=== PATIENT | female | born 1990 | race Caucasian/White ===

== ENCOUNTER → 2021-04-08 | Outpatient (CLI) | payer OTHER ==
[2021-04-08 15:05] LABS: HEMATOCRIT 43.5 % (36.0-47.0); HEMOGLOBIN 14.8 g/dl (12.0-15.5); PLATELET COUNT, AUTOMATED 331 10^3/uL (150-450); RED BLOOD COUNT 4.78 10^6/uL (4.00-5.40); WHITE BLOOD COUNT 8.4 10^3/uL (4.0-10.0)
[2021-04-08 16:17] LABS: HEPATITIS C VIRUS ABY INDEX < 0.0 INDEX (<0.8); HIV 1&2 SCREEN CENTAUR NEGATIVE (NEGATIVE)
[2021-04-08 17:02] LABS: GC DNA AMPLIFICATION NEGATIVE (NEGATIVE)
== END ==
LOC: M PLALAB 11:24
PROVIDERS: ATTEND Specialist
DX: Z34.81 Encounter for supervision of other normal pregnancy, first trimester (principal); Z3A.00 Weeks of gestation of pregnancy not specified

== ENCOUNTER → 2021-05-07 | Outpatient (CLI) | payer OTHER | LOC: M PLALAB 11:51 | PROVIDERS: ATTEND Obstetrics & Gynecology | DX: Z34.81 Encounter for supervision of other normal pregnancy, first trimester (principal); Z3A.00 Weeks of gestation of pregnancy not specified; Z53.9 Procedure and treatment not carried out, unspecified reason ==

== ENCOUNTER → 2021-07-12 | Outpatient (CLI) | payer OTHER | LOC: M WHC 15:23 | PROVIDERS: ATTEND Specialist | DX: Z34.82 Encounter for supervision of other normal pregnancy, second trimester (principal); Z3A.20 20 weeks gestation of pregnancy ==

== ENCOUNTER → 2021-08-22 | Outpatient (CLI) | payer OTHER ==
[2021-08-22 13:50] LABS: HEMATOCRIT 40.6 % (36.0-47.0); MEAN CORPUSCULAR HEMOGLOBIN 31.3 pg (27.0-33.0); MEAN CORPUSCULAR HGB CONC 34.5 g/dl (32.0-36.5); MEAN CORPUSCULAR VOLUME 90.6 fl (80.0-96.0); PLATELET COUNT, AUTOMATED 293 10^3/uL (150-450); RED BLOOD COUNT 4.48 10^6/uL (4.00-5.40); WHITE BLOOD COUNT 8.2 10^3/uL (4.0-10.0)
[2021-08-22 15:11] LABS: GC DNA AMPLIFICATION NEGATIVE (NEGATIVE)
== END ==
LOC: M PLALAB 10:38
PROVIDERS: ATTEND Specialist
DX: Z34.82 Encounter for supervision of other normal pregnancy, second trimester (principal); Z3A.00 Weeks of gestation of pregnancy not specified

== ENCOUNTER → 2021-08-29 | Outpatient (CLI) | payer OTHER | LOC: M LAB 07:04 | PROVIDERS: ATTEND Obstetrics & Gynecology | DX: R73.09 Other abnormal glucose (principal) ==

== ENCOUNTER 2021-10-26 07:35 | Outpatient (CLI) | payer OTHER ==
[~2021-10-26] VITALS: Ht 168.9 cm; Wt 63.5 kg
[2021-10-26 07:57] VITALS: BP 113/82
[2021-10-26] MEDS ORDERED: PRENTAB9 PO (08:06)
[2021-10-26] MEDS ORDERED: ACET650S3 PR (08:06)
[2021-10-26] MEDS ORDERED: ZOLO50TA PO (08:06)
[2021-10-26] MEDS ORDERED: HOME MED LIST COMPLETE! XX SCH (08:10)
[2021-10-26] MEDS ORDERED: BETAMETHASONE SOLUSPAN 6MG/ML 5ML VIAL (J0702 PER 3MG) IM ONE (09:00)
== END 2021-10-26 11:33 | disposition home or self-care (01) ==
LOC: M LDO 07:35
PROVIDERS: ATTEND Specialist
DX: O60.03 Preterm labor without delivery, third trimester (principal); O26.853 Spotting complicating pregnancy, third trimester; Z3A.35 35 weeks gestation of pregnancy
CPT/HCPCS: 59025; 96372; G0463; J0702

== ENCOUNTER 2021-10-27 09:23 | Outpatient (CLI) | payer OTHER ==
[~2021-10-27] VITALS: Ht 168.9 cm; Wt 64.4 kg
[~2021-10-27 09:23] MED LIST: ACET650S3 PR; PRENTAB9 PO; ZOLO50TA PO
[2021-10-27 09:34] VITALS: BP 129/78
[2021-10-27] MEDS ORDERED: HOME MED LIST COMPLETE! XX SCH (09:50)
[2021-10-27] MEDS ORDERED: BETAMETHASONE SOLUSPAN 6MG/ML 5ML VIAL (J0702 PER 3MG) IM ONE (10:30)
== END 2021-10-27 10:22 | disposition home or self-care (01) ==
LOC: M LDO 09:23
PROVIDERS: ATTEND Specialist
DX: O60.03 Preterm labor without delivery, third trimester (principal); Z3A.35 35 weeks gestation of pregnancy
CPT/HCPCS: 96372; G0378; J0702

== ENCOUNTER → 2021-10-30 | Outpatient (REF) | payer OTHER | LOC: M PLALAB 11:33 | PROVIDERS: ATTEND Specialist | DX: Z36.85 Encounter for antenatal screening for Streptococcus B (principal) ==

== ENCOUNTER 2021-11-05 12:18 | Outpatient (CLI) | payer OTHER ==
[~2021-11-05] VITALS: Ht 47 cm; Wt 61.9 kg
[2021-11-05 12:34] VITALS: BP 145/92
[2021-11-05] MEDS ORDERED: HOME MED LIST COMPLETE! XX SCH (12:40)
[2021-11-05 12:53] VITALS: BP 127/84
[2021-11-05 13:08] VITALS: BP 122/75
[2021-11-05 14:43] LABS: HEMATOCRIT 37.9 % (36.0-47.0); HEMOGLOBIN 12.9 g/dl (12.0-15.5); MEAN CORPUSCULAR HEMOGLOBIN 30.3 pg (27.0-33.0); PLATELET COUNT, AUTOMATED 294 10^3/uL (150-450); RED BLOOD COUNT 4.26 10^6/uL (4.00-5.40)
[2021-11-05 15:00] LABS: ALBUMIN 2.8 GM/DL (3.2-5.2); ALT/SGPT 14 U/L (12-78); BILIRUBIN,TOTAL 0.3 MG/DL (0.2-1.0); BLOOD UREA NITROGEN 9 MG/DL (7-18); CALCIUM LEVEL 8.9 MG/DL (8.5-10.1); CARBON DIOXIDE LEVEL 21 MEQ/L (21-32); CHLORIDE LEVEL 107 MEQ/L (98-107); CREATININE FOR GFR 0.41 MG/DL (0.55-1.30); GLOMERULAR FILTRATION RATE > 60.0 (>60); GLUCOSE, FASTING 116 MG/DL (70-100); LDH LACTATE DEHYDROGENASE 150 U/L (84-246); POTASSIUM SERUM 3.7 MEQ/L (3.5-5.1); SODIUM LEVEL 135 MEQ/L (136-145); TOTAL PROTEIN 6.3 GM/DL (6.4-8.2); URIC ACID 4.3 MG/DL (2.6-6.0)
[2021-11-05 15:22] LABS: CREATININE,RANDOM URINE 88.1 MG/DL; TOTAL PROTEIN,RANDOM URINE 19.4 MG/DL (0.0-12.0)
[2021-11-05 15:35] VITALS: BP 132/82
[2021-11-05] MEDS ORDERED: FIORICET TAB PO ONE (15:40)
== END 2021-11-05 16:10 | disposition home or self-care (01) ==
LOC: M LDO 12:18
PROVIDERS: ATTEND Obstetrics & Gynecology
DX: O26.893 Other specified pregnancy related conditions, third trimester (principal); R51.9 Headache, unspecified; R42 Dizziness and giddiness; Z3A.37 37 weeks gestation of pregnancy
CPT/HCPCS: 59025; 80053; 82570; 83615; 84156; 84550; 85027; G0378; G0463

== ENCOUNTER 2021-11-11 05:23 | Inpatient (IN) | payer OTHER ==
[~2021-11-11] VITALS: Ht 167.6 cm; Wt 62.2 kg
[2021-11-11] VITALS (12 sets, daily range): BP systolic 117–141; BP diastolic 70–95
[2021-11-11] MEDS ORDERED: HOME MED LIST COMPLETE! XX SCH (05:45)
[2021-11-11] MEDS ORDERED: OXYTOCIN 30 UNITS IN 0.9% NaCl 500ML IV BAG (J2590) As Ordered ONE (05:52)
[2021-11-11] MEDS ORDERED: LACTATED RINGER'S 1000 ML IV STA (05:54)
[2021-11-11] MEDS ORDERED: OXYTOCIN DRIP 30 UNITS in IV 1 EA IV PRN (05:55)
[2021-11-11] MEDS ORDERED: LR 1,000 ML IV SCH (05:55)
[2021-11-11 06:17] LABS: CORD GAS ABE V -7.6; CORD GAS HCO3 V 17.5 MEQ/L; CORD GAS O2 SAT V 60.7 %; CORD GAS PCO2 V 34.5 mmHg; CORD GAS PH V 7.322 UNITS; CORD GAS PO2 V 24.1 mmHg; CORD GAS SBC V 17.6 MEQ/L; CORD GAS TCO2 V 18.5 MEQ/L
[2021-11-11 06:18] LABS: CORD GAS ABE A -6.8; CORD GAS HCO3 A 21.8 MEQ/L; CORD GAS O2 SAT A 44.2 %; CORD GAS PCO2 A 55.9 mmHg; CORD GAS PH A 7.208 UNITS; CORD GAS PO2 A 21.8 mmHg; CORD GAS SBC A 17.8 MEQ/L; CORD GAS TCO2 A 23.5 MEQ/L
[2021-11-11] MEDS ORDERED: OXYTOCIN DRIP 30 UNITS in IV 1 EA IV SCH ×4 (06:20)
[2021-11-11] MEDS ORDERED: IBUPROFEN 800 MG TAB PO PRN (06:20)
[2021-11-11] MEDS ORDERED: DOCUSATE SODIUM 100MG CAPSULE PO PRN (06:20)
[2021-11-11] MEDS ORDERED: MEASLES,MUMPS,RUBELLA VACCINE INJ (MMR-II) (90707) SC SCH (06:20)
[2021-11-11] MEDS ORDERED: METHYLERGONOVINE MALEATE 0.2 MG TAB PO PRN (06:20)
[2021-11-11] MEDS ORDERED: RHOGAM 300 MCG (1500 IU) INJ (J2790) IM SCH (06:20)
[2021-11-11] MEDS ORDERED: ACETAMINOPHEN 500 MG TAB PO PRN ×2 (06:20)
[2021-11-11] MEDS ORDERED: ACETAMINOPHEN TAB 650MG DOSE (2X325MG) PO PRN (06:20)
[2021-11-11] MEDS ORDERED: IBUPROFEN 600MG TAB PO PRN (06:20)
[2021-11-11 06:25] LABS: HEMATOCRIT 41.7 % (36.0-47.0); HEMOGLOBIN 14.3 g/dl (12.0-15.5); MEAN CORPUSCULAR HEMOGLOBIN 30.6 pg (27.0-33.0); MEAN CORPUSCULAR HGB CONC 34.3 g/dl (32.0-36.5); MEAN CORPUSCULAR VOLUME 89.3 fl (80.0-96.0); PLATELET COUNT, AUTOMATED 311 10^3/uL (150-450); RED BLOOD COUNT 4.67 10^6/uL (4.00-5.40); WHITE BLOOD COUNT 9.5 10^3/uL (4.0-10.0)
[2021-11-11] MEDS: PRENATAL VITAMINS CHEWABLE TABLET PO SCH (07:23)
[2021-11-11] MEDS ORDERED: MOM 30ML SUSPENSION UDC PO PRN (20:20)
[2021-11-11] MEDS ORDERED: ANUSOL HC CREAM 30GM TOP PRN (20:20)
[2021-11-11] MEDS ORDERED: DIBUCAINE 1% OINTMENT 30GM TOP PRN (20:20)
[2021-11-12 05:39] VITALS: BP 117/65
[2021-11-12] MEDS: PRENATAL VITAMINS CHEWABLE TABLET PO SCH (09:38)
[2021-11-12] MEDS ORDERED: ACET-683 PO (10:49)
[2021-11-12] MEDS ORDERED: IBUP80TA PO (10:49)
== END 2021-11-12 11:48 | disposition home or self-care (01) | DRG 807 ==
LOC: M LDO 05:23 → M LDI 05:57 → M OBS 09:36
PROVIDERS: ADMIT Obstetrics & Gynecology; ATTEND Obstetrics & Gynecology
PROC: 10E0XZZ Delivery of Products of Conception, External Approach (ICD-10-PCS; principal; 2021-11-11)
DX: O69.82X0 Labor and delivery complicated by other cord entanglement, without compression, not applicable or unspecified (principal); Z37.0 Single live birth; Z3A.38 38 weeks gestation of pregnancy

== ENCOUNTER → 2022-04-25 | Outpatient (REF) | payer OTHER ==
[~2022-04-25] MED LIST changes: +ACET-683 PO; +IBUP80TA PO
== END ==
LOC: M PLALAB 09:32
PROVIDERS: ATTEND Nurse Practitioner Family
DX: Z12.4 Encounter for screening for malignant neoplasm of cervix (principal)

== ENCOUNTER → 2023-11-02 | Outpatient (CLI) | payer OTHER ==
[2023-11-02 15:51] LABS: HEMATOCRIT 39.8 % (36.0-47.0); HEMOGLOBIN 13.9 g/dl (12.0-15.5); MEAN CORPUSCULAR HEMOGLOBIN 31.7 pg (27.0-33.0); MEAN CORPUSCULAR HGB CONC 34.9 g/dl (32.0-36.5); MEAN CORPUSCULAR VOLUME 90.9 fl (80.0-96.0); PLATELET COUNT, AUTOMATED 307 10^3/uL (150-450); RED BLOOD COUNT 4.38 10^6/uL (4.00-5.40); WHITE BLOOD COUNT 9.3 10^3/uL (4.0-10.0)
[2023-11-02 16:22] LABS: CREATININE,RANDOM URINE 21.6 MG/DL; URIC ACID 2.7 MG/DL (3.1-7.8)
[2023-11-02 16:24] LABS: LDH LACTATE DEHYDROGENASE 149 U/L (120-246); TOTAL PROTEIN,RANDOM URINE < 6.0 MG/DL (0.0-14.0)
[2023-11-02 16:25] LABS: ALT/SGPT 15 U/L (7.0-40); AST/SGOT < 8 U/L (<34); BILIRUBIN,TOTAL 0.3 MG/DL (0.3-1.2); CREATININE FOR GFR 0.51 MG/DL (0.55-1.30); GLOMERULAR FILTRATION RATE > 60.0 (>60)
[2023-11-02 16:57] LABS: HIV 1&2 SCREEN NEGATIVE (NEGATIVE)
[2023-11-02 17:02] LABS: GC DNA AMPLIFICATION NEGATIVE (NEGATIVE)
[2023-11-02 19:09] LABS: HEPATITIS C VIRUS ABY INDEX < 0.02 INDEX (<0.8)
== END ==
LOC: M PLALAB 14:22
PROVIDERS: ATTEND Advanced Practice Midwife
DX: Z34.91 Encounter for supervision of normal pregnancy, unspecified, first trimester (principal)

== ENCOUNTER → 2023-12-02 | Outpatient (CLI) | payer OTHER | LOC: M PLALAB 12:01 | PROVIDERS: ATTEND Obstetrics & Gynecology | DX: Z34.80 Encounter for supervision of other normal pregnancy, unspecified trimester (principal); Z3A.00 Weeks of gestation of pregnancy not specified ==

== ENCOUNTER → 2024-01-01 | Outpatient (CLI) | payer OTHER | LOC: M WHC 12:37 | PROVIDERS: ATTEND Obstetrics & Gynecology | DX: Z34.92 Encounter for supervision of normal pregnancy, unspecified, second trimester (principal) ==

== ENCOUNTER → 2024-01-28 | Outpatient (CLI) | payer OTHER ==
[2024-01-28 10:51] LABS: HEMOGLOBIN 13.1 g/dl (12.0-15.5); MEAN CORPUSCULAR HEMOGLOBIN 31.2 pg (27.0-33.0); MEAN CORPUSCULAR HGB CONC 33.6 g/dl (32.0-36.5); MEAN CORPUSCULAR VOLUME 92.9 fl (80.0-96.0); PLATELET COUNT, AUTOMATED 291 10^3/uL (150-450); WHITE BLOOD COUNT 8.5 10^3/uL (4.0-10.0)
[2024-01-28 11:11] LABS: URIC ACID 3.4 MG/DL (3.1-7.8)
[2024-01-28 11:13] LABS: LDH LACTATE DEHYDROGENASE 139 U/L (120-246)
[2024-01-28 11:14] LABS: ALT/SGPT 15 U/L (7.0-40); AST/SGOT 11 U/L (<34); BILIRUBIN,TOTAL 0.3 MG/DL (0.3-1.2); CREATININE FOR GFR 0.52 MG/DL (0.55-1.30); GLOMERULAR FILTRATION RATE > 60.0 (>60)
[2024-01-28 11:20] LABS: CREATININE,RANDOM URINE 59.2 MG/DL
[2024-01-28 11:24] LABS: TOTAL PROTEIN,RANDOM URINE < 6.0 MG/DL (0.0-14.0)
== END ==
LOC: M PLALAB 08:56
PROVIDERS: ATTEND Obstetrics & Gynecology
DX: Z86.79 Personal history of other diseases of the circulatory system (principal)

== ENCOUNTER → 2024-01-29 | Outpatient (CLI) | payer OTHER | LOC: M RAD 10:12 | PROVIDERS: ATTEND Obstetrics & Gynecology | DX: O09.292 Supervision of pregnancy with other poor reproductive or obstetric history, second trimester (principal); Z3A.23 23 weeks gestation of pregnancy ==

== ENCOUNTER → 2024-02-05 | Outpatient (CLI) | payer OTHER ==
[2024-02-05 12:58] LABS: HEMATOCRIT 38.6 % (36.0-47.0); HEMOGLOBIN 13.1 g/dl (12.0-15.5); MEAN CORPUSCULAR HEMOGLOBIN 31.5 pg (27.0-33.0); MEAN CORPUSCULAR HGB CONC 33.9 g/dl (32.0-36.5); MEAN CORPUSCULAR VOLUME 92.8 fl (80.0-96.0); PLATELET COUNT, AUTOMATED 284 10^3/uL (150-450); RED BLOOD COUNT 4.16 10^6/uL (4.00-5.40); WHITE BLOOD COUNT 8.7 10^3/uL (4.0-10.0)
[2024-02-05 13:04] LABS: GLUCOSE CHALLENGE TEST 1 HOUR 98 MG/DL (LESS THAN 140)
[2024-02-05 13:31] LABS: HIV 1&2 SCREEN NEGATIVE (NEGATIVE)
[2024-02-05 13:38] LABS: HEPATITIS C VIRUS ABY INDEX 0.04 INDEX (<0.8)
[2024-02-05 14:03] LABS: GC DNA AMPLIFICATION NEGATIVE (NEGATIVE)
== END ==
LOC: M PLALAB 08:16
PROVIDERS: ATTEND Obstetrics & Gynecology
DX: Z34.92 Encounter for supervision of normal pregnancy, unspecified, second trimester (principal); Z3A.19 19 weeks gestation of pregnancy